=== PATIENT | male | born 1955 | race Caucasian/White ===

== ENCOUNTER 2020-04-24 11:43 | Emergency (ER) | payer OTHER ==
[~2020-04-24] VITALS: Ht 175.3 cm; Wt 74.8 kg
[~2020-04-24 11:43] MED LIST: IBUPROFEN 600600 M1 PO; NOHOMEMEDICATIONS; NORCO 5-325 TA1 EACH PO; ROBAXIN500 MG PO
[2020-04-24 12:25] LABS: URINE BILIRUBIN NEGATIVE (Negative); URINE BLOOD NEGATIVE (Negative); URINE CLARITY CLEAR; URINE COLOR YELLOW; URINE GLUCOSE-RANDOM NEGATIVE (Negative); URINE KETONES NEGATIVE (Negative); URINE LEUKOCYTES-REFLEX NEGATIVE (Negative); URINE NITRITE-REFLEX NEGATIVE (Negative); URINE PROTEIN TRACE (Negative); URINE SPECIFIC GRAVITY >= 1.030 (1.005-1.030); URINE UROBILINOGEN 0.2 E.U./dl (0.2-1.0)
[2020-04-24 12:39] LABS: ABSOLUTE EOSINOPHILS 0.1 thou/uL (0.0-0.7); ABSOLUTE LYMPHOCYTES 1.2 thou/uL (0.8-5.3); ABSOLUTE MONOCYTES 0.8 thou/uL (0.0-1.2); ABSOLUTE NEUTROPHILS 6.2 thou/uL (1.6-8.1); BASOPHILS 0.5 %; EOSINOPHILS 0.9 %; HEMATOCRIT 43.9 % (42.0-52.0); HEMOGLOBIN 14.6 gm/dL (14.0-18.0); LYMPHOCYTES 14.7 %; MCH 32.2 pg (26.0-34.0); MCHC 33.3 g/dL (28.0-37.0); MCV 96.7 fL (80.0-100.0); MONOCYTES 9.4 %; MPV 9.1 fl. (7.2-11.1); NUCLEATED RBCS 0 /100WBC; PLATELET COUNT* 189 thou/uL (150-400); POLYS 74.5 %; RBC 4.54 mil/uL (4.50-6.00); RDW-CV 13.7 % (10.5-14.5); WBC 8.3 thou/uL (4.0-11.0)
[2020-04-24 12:48] LABS: CALCIUM 8.3 mg/dL (8.5-10.1); CREATININE 1.1 mg/dL (0.6-1.3); POTASSIUM 3.7 mmol/L (3.5-5.1)
[2020-04-24 12:52] LABS: ALBUMIN 3.5 g/dL (3.4-5.0); TOTAL BILIRUBIN 0.3 mg/dL (<0.1-1.0); TOTAL PROTEIN 6.4 g/dL (6.4-8.2)
[2020-04-24 12:52] LABS: AMP/METHAMP Negative (Negative); BARBITURATES Negative (Negative); BENZODIAZEPINES Negative (Negative); COCAINE Negative (Negative); METHADONE Negative (Negative); OPIATES Negative (Negative); PCP Negative (Negative); THC Negative (Negative)
[2020-04-24 12:58] LABS: APTT 22.2 Seconds (25.0-31.3); PROTIME 10.7 Seconds (9.20-11.50)
[2020-04-24 14:50] VITALS: BP 119/78
--- NOTE | 2020-04-25 10:18 | EKG ---
[place] [address] ELECTROCARDIOGRAM REPORT Name: ROSENDO SANCHEZ Room: [facility]#: [id number] Admission: 04/24/20 Attend Phys: Discharge: 04/24/20 Date of : 55 Date of Service: 04/24/20 1149 Report #: [id number] THIS REPORT FOR: //name// [facility] ED Test Date: 2020-04-24 Test Time: 11:49:02 Pat Name: ROSENDO SANCHEZ Department: Room: Gender: Community Aide: [facility] : 1955 Requested By: Usama Alexis Order Number: [id number] MD: Devante Jordan Measurements Intervals [place] Rate: 95 P: 49 MT: 160 QRS: 32 QRSD: 107 T: 43 QT: 360 QTc: 453 Interpretive Statements Sinus rhythm S1,S2,S3 pattern RSR' in V1 or V2, right VCD or RVH No previous ECG available for comparison Electronically Signed On 04-25-2020 10:18:36 [employer] by Devante Jordan [email or web address] <ELECTRONICALLY SIGNED> By: Devante Jordan MD, [facility] 04/25/20 1018 1149 1149 Devante Jordan MD, [facility] /EPI
== END 2020-04-24 14:51 | disposition home or self-care (01) ==
LOC: M.ERS 11:43
PROVIDERS: Family Medicine
DX: R56.9 Unspecified convulsions (principal)